=== PATIENT | male | born 1950 | race Caucasian/White ===

== ENCOUNTER 2018-08-24 20:18 | Emergency (ER) | payer OTHER ==
[2018-08-24 21:30] LABS: Absolute Lymphocytes (CBC) 1.4 K/uL (0.7-4.9); Absolute Monocytes 0.6 K/uL (0.1-1.3); Absolute Neutrophil 5.3 K/uL (1.8-8.0); Basophils % 0.6 % (0-1.3); Eosinophils % 0.3 % (0-4.4); Hematocrit 47.6 % (39.6-49.0); Lymphocytes % 18.5 % (15.3-44.8); MPV 7.4 fL (7.6-11.3); Monocytes % 7.8 % (3.3-12.3); RBC Red Blood Cell Count 5.06 M/uL (4.33-5.43)
[2018-08-24 21:32] LABS: Protime INR 1.01
[2018-08-24] MEDS ORDERED: NA CHLORIDE 0.9% 1,000 ML ONE (21:34)
[2018-08-24 21:57] LABS: ALT/SGPT 34 U/L (12-78); AST/SGOT 21 U/L (15-37); Alkaline Phosphatase 72 U/L (45-117); BUN Blood Urea Nitrogen 9 mg/dL (7-18); Bicarbonate 28 mmol/L (21-32); Bilirubin Direct 0.2 mg/dL (0-0.2); Bilirubin Total 0.7 mg/dL (0.2-1.0); Glucose Level 107 mg/dL (74-106); Magnesium 2.4 mg/dL (1.8-2.4); NT PRO-BNP 254 pg/mL (<125); Potassium 4.1 mmol/L (3.5-5.1); Protein, Total 7.5 g/dL (6.4-8.2); Sodium Level 142 mmol/L (136-145); Troponin (Emerg Dept Use Only) < 0.02 ng/mL (0.0-0.045)
--- NOTE | 2018-08-24 23:43 | EDPHYS ---
Physician Documentation [facility] Name: Lukasz Ocampo Age: 68 yrs Sex: Male : 1950 Arrival Date: 08/24/2018 Time: 20:21 Bed 26 Private MD: ED Physician Miguel Gonsales HPI: 08/24 23:42 This 68 yrs old Male presents to ER via Ambulatory with complaints of tw4 Dizziness. 23:42 The patient presents with generalized weakness. Onset: The symptoms/episode tw4 began/occurred today. Context: occurred at home. Modifying factors: The symptoms are alleviated by nothing, the symptoms are aggravated by nothing. Historical: - Allergies: 20:34 No Known Allergies; tl2 - Home Meds: 20:34 Metoprolol Tartrate Oral as needed [Active]; tl2 - PMHx: 20:34 Atrial Fib; tl2 - PSHx: 20:34 Appendectomy; 2 heart ablations; tl2 - Immunization history:: Adult Immunizations up to date. - Social history:: Smoking status: Patient/guardian denies using tobacco. - Ebola Screening: : No symptoms or risks identified at this time. ROS: 08/25 06:54 Eyes: Negative for injury, pain, redness, and discharge. tw4 Cardiovascular: Negative for chest pain, palpitations, and edema, Respiratory: Negative for shortness of breath, cough, wheezing, and pleuritic chest pain, Abdomen/GI: Negative for abdominal pain, nausea, vomiting, diarrhea, and constipation, Back: Negative for injury and pain, MS/Extremity: Negative for injury and deformity, Skin: Negative for injury, rash, and discoloration, Neuro: Negative for headache, weakness, numbness, tingling, and seizure. Constitutional: Positive for fatigue, malaise. Exam: 06:54 Constitutional: This is a well developed, well nourished patient who is awake, alert, tw4 and in no acute distress. Head/Face: Normocephalic, atraumatic. Eyes: Pupils equal round and reactive to light, extra-ocular motions intact. Lids and lashes normal. Conjunctiva and sclera are non-icteric and not injected. Cornea within normal limits. Periorbital areas with no swelling, redness, or edema. ENT: Nares patent. No nasal discharge, no septal abnormalities noted. Tympanic membranes are normal and external auditory canals are clear. Oropharynx with no redness, swelling, or masses, exudates, or evidence of obstruction, uvula midline. Mucous membranes moist. Chest/axilla: Normal chest wall appearance and motion. Nontender with no deformity. No lesions are appreciated. Cardiovascular: Regular rate and rhythm with a normal S1 and S2. No gallops, murmurs, or rubs. Normal PMI, no JVD. No pulse deficits. Respiratory: Lungs have equal breath sounds bilaterally, clear to auscultation and percussion. No rales, rhonchi or wheezes noted. No increased work of breathing, no retractions or nasal flaring. Abdomen/GI: Soft, non-tender, with normal bowel sounds. No distension or tympany. No guarding or rebound. No evidence of tenderness throughout. MS/ Extremity: Pulses equal, no cyanosis. Neurovascular intact. Full, normal range of motion. Neuro: Awake and alert, GCS 15, oriented to person, place, time, and situation. Cranial nerves II-XII grossly intact. Motor strength 5/5 in all extremities. Sensory grossly intact. Cerebellar exam normal. Normal gait. Vital Signs: 08/24 20:34 BP 176 / 95; Pulse 69; Resp 18; Temp 98.1(O); Pulse Ox 96% on R/A; Weight 102.06 kg; tl2 Height 5 ft. 10 in. (177.80 cm); Pain 0/10; 21:00 BP 159 / 86 LA; Pulse 64; Resp 14 S; Pulse Ox 96% on R/A; rv 22:00 BP 162 / 94 LA; Pulse 64; Resp 16 S; Pulse Ox 97% on R/A; rv 22:30 BP 142 / 82 LA; Pulse 61; Resp 16 S; Pulse Ox 97% on R/A; rv 23:00 BP 146 / 78 LA; Pulse 61; Resp 15 S; Pulse Ox 97% on R/A; rv 23:30 BP 132 / 70 LA; Pulse 61; Resp 15 S; Pulse Ox 97% on R/A; rv 20:34 Body Mass Index 32.28 (102.06 kg, 177.80 cm) tl2 MDM: 20:44 Patient medically screened. tw4 08/25 06:54 Differential diagnosis: cardiac arrhythmia, CVA, generalized weakness. Data reviewed: tw4 vital signs, nurses notes. Data interpreted: Pulse oximetry: Interpretation: normal. Counseling: I had a detailed discussion with the patient and/or guardian regarding: the historical points, exam findings, and any diagnostic results supporting the discharge/admit diagnosis, radiology results. Special discussion: I discussed with the patient/guardian in detail that at this point there is no indication for admission to the hospital. It is understood, however, that if the symptoms persist or worsen the patient needs to return immediately for re-evaluation. 08/24 21:14 Order name: Basic Metabolic Panel; Complete Time: 23:04 08/24 23:04 Interpretation: Normal except: CL 108; GLUC 107. 08/24 21:14 Order name: CBC with Diff; Complete Time: 23:05 08/24 23:05 Interpretation: Normal except: MPV 7.4. 08/24 21:14 Order name: LFT's; Complete Time: 23:05 [facility] 08/24 23:05 Interpretation: Within normal limits. 08/24 21:14 Order name: Magnesium; Complete Time: 23:05 08/24 23:05 Interpretation: Within normal limits: MG 2.4. 08/24 21:14 Order name: NT PRO-BNP; Complete Time: 23:05 [facility] 08/24 23:05 Interpretation: Normal except: NT PRO-BNP 254. 08/24 21:14 Order name: PT-INR; Complete Time: 23:05 08/24 23:05 Interpretation: Within normal limits: PT 11.9. 08/24 21:14 Order name: Troponin (emerg Dept Use Only) 08/24 21:14 Order name: EKG; Complete Time: 21:15 08/24 21:14 Order name: Cardiac monitoring; Complete Time: 21:24 08/24 21:14 Order name: EKG - Nurse/Tech; Complete Time: 21:24 08/24 21:14 Order name: IV Saline Lock; Complete Time: 21:24 08/24 21:14 Order name: Labs collected and sent; Complete Time: 21:25 08/24 21:25 Order name: Flu; Complete Time: 23:22 08/24 21:14 Order name: O2 Per Protocol; Complete Time: 21:25 tw4 08/24 21:14 Order name: O2 Sat Monitoring; Complete Time: :25 4 Administered Medications: 08/24 21:24 Drug: NS 0.9% 1000 ml Route: IV; Rate: 1 bolus; Site: right antecubital; rv 23:53 Follow up: IV Status: Completed infusion rv Disposition: 08/24/18 23:42 Discharged to Home. Impression: Muscle weakness (generalized). - Condition is Stable. - Discharge Instructions: Weakness, [id number]. - Medication Reconciliation Form, Thank You Letter, Antibiotic Education, Prescription Opioid Use form. - Follow up: Private Physician; When: Upon discharge from the Emergency Department; Reason: If symptoms return, Recheck today's complaints, Continuance of care. - Problem is new. - Symptoms have improved. Signatures: Dispatcher [employer] EDMS Meg Valle RN RN tl2 Miguel Gonsales MD MD tw4 Manuel Chambers RN RN rv Corrections: (The following items were deleted from the chart) 23:54 23:42 08/24/2018 23:42 Discharged to Home. Impression: Muscle weakness (generalized). rv Condition is Stable. Forms are Medication Reconciliation Form, Thank You Letter, Antibiotic Education, Prescription Opioid Use. Follow up: Private Physician; When: Upon discharge from the Emergency Department; Reason: If symptoms return, Recheck today's complaints, Continuance of care. Problem is new. Symptoms have improved. tw4
--- NOTE | 2018-08-24 23:43 | ER ---
Nurse's Notes [facility] Name: Lukasz Ocampo Age: 68 yrs Sex: Male : 1950 Arrival Date: 08/24/2018 Time: 20:21 Bed 26 Private MD: Diagnosis: Muscle weakness (generalized) Presentation: 08/24 20:33 Presenting complaint: Patient states: [facility] felt like tl2 my heart was racing and a little lightheaded. I just didn't feel right. Had EKG at [facility], sinus rhythm but was told to come to ER. Transition of care: patient was not received from another setting of care. Onset of symptoms was August 24, 2018. Risk Assessment: Do you want to hurt yourself or someone else? Patient reports no desire to harm self or others. Initial Sepsis Screen: Does the patient meet any 2 criteria? No. Patient's initial sepsis screen is negative. Does the patient have a suspected source of infection? No. Patient's initial sepsis screen is negative. Care prior to arrival: None. 20:33 Method Of Arrival: Ambulatory tl2 20:33 Acuity: CHUNG 3 tl2 Triage Assessment: 20:34 General: Appears in no apparent distress. comfortable, Behavior is calm, cooperative, tl2 appropriate for age. Pain: Denies pain. Neuro: Level of Consciousness is awake, alert, obeys commands, Reports feeling light headed. Historical: - Allergies: 20:34 No Known Allergies; tl2 - Home Meds: 20:34 Metoprolol Tartrate Oral as needed [Active]; tl2 - PMHx: 20:34 Atrial Fib; tl2 - PSHx: 20:34 Appendectomy; 2 heart ablations; tl2 - Immunization history:: Adult Immunizations up to date. - Social history:: Smoking status: Patient/guardian denies using tobacco. - Ebola Screening: : No symptoms or risks identified at this time. Screenin:35 Abuse screen: Denies threats or abuse. Nutritional screening: No deficits noted. tl2 Tuberculosis screening: No symptoms or risk factors identified. Fall Risk None identified. Assessment: 21:25 General: Appears in no apparent distress. comfortable, Behavior is calm, cooperative. rv Pain: Denies pain. Neuro: Level of Consciousness is awake, alert, obeys commands, Oriented to person, place, time, situation. Cardiovascular: Capillary refill < 3 seconds. Respiratory: Airway is patent. GI: No signs and/or symptoms were reported involving the gastrointestinal system. : No signs and/or symptoms were reported regarding the genitourinary system. EENT: No signs and/or symptoms were reported regarding the EENT system. Derm: Skin is intact. Musculoskeletal: No signs and/or symptoms reported regarding the musculoskeletal system. Vital Signs: 20:34 BP 176 / 95; Pulse 69; Resp 18; Temp 98.1(O); Pulse Ox 96% on R/A; Weight 102.06 kg; tl2 Height 5 ft. 10 in. (177.80 cm); Pain 0/10; 21:00 BP 159 / 86 LA; Pulse 64; Resp 14 S; Pulse Ox 96% on R/A; rv 22:00 BP 162 / 94 LA; Pulse 64; Resp 16 S; Pulse Ox 97% on R/A; rv 22:30 BP 142 / 82 LA; Pulse 61; Resp 16 S; Pulse Ox 97% on R/A; rv 23:00 BP 146 / 78 LA; Pulse 61; Resp 15 S; Pulse Ox 97% on R/A; rv 23:30 BP 132 / 70 LA; Pulse 61; Resp 15 S; Pulse Ox 97% on R/A; rv 20:34 Body Mass Index 32.28 (102.06 kg, 177.80 cm) tl2 ED Course: 20:21 Patient arrived in ED. es 20:34 Triage completed. tl2 20:34 Arm band placed on right wrist. tl2 20:35 Patient has correct armband on for positive identification. Bed in low position. Call tl2 light in reach. Side rails up X 1. Adult w/ patient. 20:44 Miguel Gonsales MD is Attending Physician. tw4 21:15 Inserted saline lock: 20 gauge in right antecubital area, using aseptic technique. rv Blood collected. 23:53 No provider procedures requiring assistance completed. IV discontinued, bleeding rv controlled, No redness/swelling at site. Pressure dressing applied. Administered Medications: 21:24 Drug: NS 0.9% 1000 ml Route: IV; Rate: 1 bolus; Site: right antecubital; rv 23:53 Follow up: IV Status: Completed infusion rv Outcome: 23:42 Discharge ordered by . tw4 23:54 Discharged to home ambulatory. rv 23:54 Condition: good 23:54 Discharge instructions given to patient, Instructed on discharge instructions, follow up and referral plans. Demonstrated understanding of instructions, follow-up care. 23:54 Patient left the ED. rv Signatures: Glorai Smith Taylor, RN RN tl2 Miguel Gonsales MD MD tw4 Manuel Chambers RN RN rv
--- NOTE | 2018-08-25 05:53 | EKG ---
Test Date: 2018-08-24 Test Time: 20:40:50 [employer] Team Lead: MEASUREMENT RESULTS: Intervals: Rate: 65 OH: 178 QRSD: 100 QT: 434 QTc: 451 Talpa: P: 77 OH: 178 QRS: 40 T: 133 INTERPRETIVE STATEMENTS: Normal sinus rhythm ST & T wave abnormality, consider anterolateral ischemia Abnormal ECG No previous ECG available for comparison Electronically Signed On 08-25-18 05:52:48 CDT by Girish Sadler
== END 2018-08-24 23:54 | disposition home or self-care (01) ==
LOC: ER 20:18
DX: M62.81 Muscle weakness (generalized) (principal); I48.91 Unspecified atrial fibrillation
CPT/HCPCS: 96361; 93005; 85025; 80048; 36415; 83735; 85610; 80076; 84484; 83880; 87804 ×2; 96360; 99284; J7030